=== PATIENT | female | born 1985 | race African-American/Black ===

== ENCOUNTER 2022-12-24 18:52 | Emergency (ER) | payer MEDICAID, OTHER ==
[~2022-12-24] VITALS: Ht 160 cm; Wt 100.0 kg
[2022-12-24 19:13] VITALS: BP 137/89; PULSE 68; RESP 16; TEMP 98.4; O2SAT 100
[2022-12-24] MEDS ORDERED: METH-653 MT (19:45)
[2022-12-24 19:59] LABS: CLARITY URINE TURBID (CLEAR); COLOR URINE YELLOW (YELLOW); GLUCOSE URINE NEGATIVE (NEGATIVE); KETONES URINE NEGATIVE (NEGATIVE); LEUKOCYTE ESTERASE URINE 2+ (NEGATIVE); NITRITE URINE NEGATIVE (NEGATIVE); OCCULT BLOOD URINE 2+ (NEGATIVE); PH URINE 5.5 (4.5-8.0); PROTEIN URINE TRACE (NEGATIVE); SPECIFIC GRAVITY URINE 1.024 (1.005-1.030)
[2022-12-24] MEDS ORDERED: IBUPROFEN 600MG TABLET PO ONE (20:00)
[2022-12-24 20:18] LABS: BACTERIA URINE 4+; SQUAMOUS EPITHELIAL CELL URINE 1+ /lpf (RARE/1+)
== END 2022-12-24 20:04 | disposition home or self-care (01) ==
LOC: ER 18:52
DX: M54.2 Cervicalgia (principal); M54.50 Low back pain, unspecified; M25.512 Pain in left shoulder
CPT/HCPCS: 81003; 81025; 99283